=== PATIENT | male | born 1995 | race Caucasian/White ===

== ENCOUNTER 2018-06-03 15:26 | Emergency (ER) | payer OTHER ==
[~2018-06-03] VITALS: Ht 185.4 cm; Wt 90.7 kg
[~2018-06-03 15:26] MED LIST: ALBU90I INH; ALBU90OI; ALBU90OI INH; AMOX500 PO; ATOM60 PO; AZIT250 PO; Augmentin 875-1 EACH PO; CEPH250A PO; CEPH500 PO; CLIN150 PO; CLIN300 PO; CODACE30 PO; CODGUAEL PO; CYCL10 PO; Cleocin HCl300 MG PO; ERYT.5TO LEFTEYE; HYDACE5 PO; IBUP600 PO; IBUP800 PO; INCARCERATION; LORA10ER PO; LORPSEER12; MONT10T; MONT10T PO; NAPR500 PO; PRED15SY PO; PRED20 PO; RXALBOI INH; RXCLIN PO; RXCODACET PO; RXHYDACE PO; Vibramycin100 MG PO; Wellbutrin PO; [UNRECOGNIZED DRUG - REMARK]; [UNRECOGNIZED DRUG - REMARK]
== END 2018-06-03 17:42 | disposition home or self-care (01) ==
LOC: ER 15:26
DX: N48.89 Other specified disorders of penis (principal); F17.210 Nicotine dependence, cigarettes, uncomplicated; Z88.2 Allergy status to sulfonamides
CPT/HCPCS: 99282; J0561

== ENCOUNTER 2018-10-15 12:26 | Emergency (ER) | payer OTHER ==
[~2018-10-15] VITALS: Ht 193 cm; Wt 86.2 kg
[2018-10-16] MEDS ORDERED: CEPH500 PO (09:47)
== END 2018-10-15 13:32 | disposition home or self-care (01) ==
LOC: ER 12:26
DX: L02.414 Cutaneous abscess of left upper limb (principal); Z88.2 Allergy status to sulfonamides; F17.210 Nicotine dependence, cigarettes, uncomplicated
CPT/HCPCS: 10060; 99283-25

== ENCOUNTER 2018-10-16 07:43 | Emergency (ER) | payer OTHER ==
[~2018-10-16] VITALS: Ht 162.6 cm; Wt 90.7 kg
[2018-10-16] MEDS ORDERED: CEPH500 PO (09:47)
== END 2018-10-16 09:59 | disposition home or self-care (01) ==
LOC: ER 07:43
DX: S61.211A Laceration without foreign body of left index finger without damage to nail, initial encounter (principal); J45.909 Unspecified asthma, uncomplicated; F17.210 Nicotine dependence, cigarettes, uncomplicated; Z88.2 Allergy status to sulfonamides; Z79.2 Long term (current) use of antibiotics; Z86.19 Personal history of other infectious and parasitic diseases; W26.0XXA Contact with knife, initial encounter
CPT/HCPCS: 12002; 99282-25; J0690

== ENCOUNTER 2018-12-20 11:15 | Emergency (ER) | payer OTHER ==
[~2018-12-20] VITALS: Ht 193 cm; Wt 90.7 kg
== END 2018-12-20 11:40 | disposition left against medical advice (07) ==
LOC: ER 11:15
DX: Z53.21 Procedure and treatment not carried out due to patient leaving prior to being seen by health care provider (principal)

== ENCOUNTER 2019-02-06 18:36 | Emergency (ER) | payer OTHER ==
[~2019-02-06] VITALS: Ht 190.5 cm; Wt 72.6 kg
[2019-02-07 02:00] LABS: BASOPHILS ABSOLUTE AUTO 0.09 K/mm3 (0.00-0.23); BASOPHILS PERCENT AUTO 1 % (0-2); EOSINOPHILS ABSOLUTE AUTO 0.01 K/mm3 (0.00-0.68); EOSINOPHILS PERCENT AUTO 0 % (0-6); Hematocrit 38.6 % (37.0-53.0); Hemoglobin 12.5 g/dL (13.5-17.5); IMMATURE GRAN ABSOLUTE AUTO 0.77 K/mm3 (0.00-0.10); IMMATURE GRAN PERCENT AUTO 5 % (0-1); LYMPHOCYTES ABSOLUTE AUTO 1.52 K/mm3 (0.84-5.20); LYMPHOCYTES PERCENT AUTO 9 % (21-46); MONOCYTES ABSOLUTE AUTO 1.03 K/mm3 (0.16-1.47); MONOCYTES PERCENT AUTO 6 % (4-13); Mean Corpuscular HGB Conc 32.4 g/dL (31.5-36.5); Mean Corpuscular Volume 83 fL (80-100); Mean Platelet Volume 10.5 fL (9.1-12.4); NEUTROPHILS ABSOLUTE AUTO 13.53 K/mm3 (1.96-9.15); NEUTROPHILS PERCENT AUTO 80 % (41-73); Platelet Count 243 K/mm3 (150-400); RDW Coefficient Variation 15.8 % (11.7-14.2); RDW Standard Deviation 47.8 fL (35.1-46.3); Red Blood Cell Count 4.63 M/mm3 (4.30-5.90); White Blood Cell Count 16.95 K/mm3 (4.00-11.30)
[2019-02-07 02:06] LABS: Alanine Aminotransfer (ALT/SGP 186 U/L (12-78); Albumin/Globulin Ratio 0.9 (0.8-1.8); Alk Phos 78 U/L (50-136); Anion Gap 9 mmol/L (6-16); Aspartate Aminotrans (AST/SGOT 171 U/L (12-37); Bilirubin, Total 0.7 mg/dL (0.1-1.0); Blood Urea Nitrogen 40 mg/dL (8-24); Bun/Creatinine Ratio 38.8 (12.0-20.0); CO2, Blood 25 mmol/L (21-32); Calcium, Blood 9.2 mg/dL (8.5-10.1); Chloride, Blood 111 mmol/L (98-108); Creatine Kinase MB 31.4 ng/mL (0.0-3.6); Creatinine, Blood 1.03 mg/dL (0.60-1.20); Globulin, Blood 4.6 g/dL (2.2-4.0); Glomerular Filtration Rate >60 (60-); Glucose, Blood 85 mg/dL (70-99); Potassium, Blood 3.8 mmol/L (3.5-5.5); Sodium, Blood 145 mmol/L (136-145); Total Protein, Blood 8.6 g/dL (6.4-8.2)
[2019-02-07 02:17] LABS: CPK Creatine Kinase 1135 U/L (39-308); Creatine Kinase MB Index 2.8 (0.0-4.0)
== END 2019-02-07 05:35 | disposition home or self-care (01) ==
LOC: ER 18:36
PROVIDERS: Physician Assistant
DX: F15.129 Other stimulant abuse with intoxication, unspecified (principal); R45.1 Restlessness and agitation; M62.82 Rhabdomyolysis; F17.210 Nicotine dependence, cigarettes, uncomplicated
CPT/HCPCS: 36415; 80053; 82550; 82553; 85025; 96360; 96361; 96372-59; 99284-25; J1200; J1630; J2060; J7030

== ENCOUNTER 2019-04-08 23:59 | Emergency (ER) | payer SELFPAY | END 2019-04-09 00:15 | disposition left against medical advice (07) | LOC: ER 23:59 | DX: Z53.21 Procedure and treatment not carried out due to patient leaving prior to being seen by health care provider (principal) ==